=== PATIENT | male | born 1930 | race Caucasian/White ===

== ENCOUNTER 2017-12-06 12:21 | Inpatient (IN) | payer MEDICARE, OTHER ==
[~2017-12-06] VITALS: Ht 177.8 cm; Wt 92.3 kg
[~2017-12-06 12:21] MED LIST: CARDURA 2MG2 MG PO; COZAAR100 MG PO; DEPO-TESTOS200 MG/M1 IM; HCTZ 25MG TAB25 MG PO; MULTIPLE VITAMI1 CAP PO; NEURONTIN300 MG/CAP PO; NORVASC 10MG10 MG PO; PRAVACHOL 40MG40 MG PO; VITAMIN D1000 IU PO
[2018-02-10] VITALS (13 sets, daily range): BP systolic 113–153; BP diastolic 52–86; PULSE 51–109; TEMP 97.2–98.2
[2018-02-11 04:55] VITALS: BP 117/57; PULSE 59; TEMP 97.9
[2018-02-11 06:48] LABS: HEMOGLOBIN 14.1 g/dl (13.5-18.0)
[2018-02-11 07:47] VITALS: BP 133/60; PULSE 54; TEMP 97
[2018-02-11 12:56] VITALS: BP 140/44; PULSE 93; TEMP 97.6
[2018-02-11 16:50] VITALS: BP 136/50; PULSE 90; TEMP 97.4
[2018-02-11 21:41] VITALS: BP 167/58; PULSE 54; TEMP 98.1
[2018-02-12 00:12] VITALS: BP 138/55; PULSE 57; TEMP 98.1
[2018-02-12 04:02] VITALS: BP 140/63; PULSE 55; TEMP 98.2
[2018-02-12] MEDS ORDERED: NORCO 325 MG-7.1 TAB PO (06:34)
[2018-02-12] MEDS ORDERED: ROXICODONE 55 MG/TAB PO (06:35)
[2018-02-12] MEDS ORDERED: ASPI325T6 PO (06:35)
[2018-02-12 08:00] VITALS: BP 144/50; PULSE 56; TEMP 97.6
[2018-02-12 11:34] VITALS: BP 120/61; PULSE 62; TEMP 97.5
== END 2018-02-12 13:45 | disposition home or self-care (01) | DRG 470 ==
LOC: JCC 02-10 08:07
PROVIDERS: Orthopaedic Surgery
PROC: 0SRD0J9 Replacement of Left Knee Joint with Synthetic Substitute, Cemented, Open Approach (ICD-10-PCS; principal; 2018-02-10 14:00)
DX: M17.12 Unilateral primary osteoarthritis, left knee (principal); I10 Essential (primary) hypertension; Z85.46 Personal history of malignant neoplasm of prostate
CPT/HCPCS: A4314; A9284; C1713; C1776; J0690; J2250; J2704; J7120

== ENCOUNTER → 2018-01-30 | Outpatient (CLI) | payer MEDICARE, OTHER ==
[~2018-01-30] MED LIST changes: -DEPO-TESTOS200 MG/M1 IM; +TESTOSTERONE
[2018-01-30 13:05] LABS: HIV 1/2 Antibodies Non-Reactive; HIV-1p24 Antigen Non-Reactive
== END ==
LOC: COL.LAB 11:01
PROVIDERS: Orthopaedic Surgery
DX: Z01.818 Encounter for other preprocedural examination (principal); M17.12 Unilateral primary osteoarthritis, left knee

== ENCOUNTER 2018-02-23 04:33 | Emergency (ER) | payer MEDICARE, OTHER ==
[~2018-02-23] VITALS: Ht 182.9 cm; Wt 95.5 kg
[~2018-02-23 04:33] MED LIST changes: +ASPI325T6 PO; +DEPO-TESTOS200 MG/M1 IM; +NORCO 325 MG-7.1 TAB PO; +ROXICODONE 55 MG/TAB PO; -TESTOSTERONE
[2018-02-23] MEDS ORDERED: TYLENOL 500MG500 MG PO (05:49)
[2018-02-23] MEDS ORDERED: DULCOLAX STOOL100 MG PO (05:50)
[2018-02-23] MEDS ORDERED: GOOD NEIGH1200 MG/15 (05:51)
[2018-02-23] MEDS ORDERED: LYRICA 75MG CAP75 MG PO (05:51)
[2018-02-23 06:02] LABS: BASO # 0.1 (0.0-0.2); BASO % 0.5 % (0.0-2.0); EOS # 0.3 (0.0-0.7); EOS % 2.6 % (0-4.0); GRAN # 7.3 (1.4-6.5); GRAN % 76.9 % (42.2-75.2); HEMOGLOBIN 13.8 g/dl (13.5-18.0); LYMPH # 1.1 (1.2-3.4); LYMPH % 11.3 % (20.0-51.0); MEAN CELL VOLUME 93 fl (80.0-100.0); MEAN CORPUSCULAR HEMOGLOBIN 31 pg (27.0-31.0); MEAN CORPUSCULAR HGB CONC 34 g/dl (33.0-37.0); MEAN PLATELET VOLUME 9.1 fl (7.4-10.4); MONO # 0.8 (0.1-0.6); MONO % 7.9 % (1.7-9.3); PLATELET COUNT 310 K/mm3 (130-400); RED BLOOD COUNT 4.43 M/mm3 (4.20-5.60)
[2018-02-23 06:23] LABS: ALANINE AMINOTRANSFERASE 50 U/L (21-72); ALBUMIN 3.6 gm/dL (3.5-5.0); ALKALINE PHOSPHATASE 71 U/L (50-136); ANION GAP 11 mmol/L (7-16); AST,SGOT 38 U/L (15-37); BLOOD UREA NITROGEN 28 mg/dL (9-20); CALCIUM 7.9 mg/dL (8.4-10.2); CARBON DIOXIDE 27 mmol/L (22-30); CHLORIDE 91 mmol/L (98-107); CREATININE, serum 1.37 mg/dL (0.66-1.25); GLUCOSE 119 mg/dL (74-106); POTASSIUM 3.6 mmol/L (3.4-5.0); SODIUM 129 mmol/L (137-145); TOTAL PROTEIN 6.7 gm/dL (6.4-8.2)
[2018-02-23] MEDS ORDERED: ZOFRAN 4MG T4 MG/TAB PO (06:41)
[2018-02-23] MEDS ORDERED: ANTIVERT 25MG25 MG PO (06:41)
[2018-02-23 06:53] LABS: TROPONIN-I < 0.012 ng/mL (0.000-0.034)
[2018-02-23 07:03] VITALS: BP 145/65; PULSE 65; TEMP 97.5
== END 2018-02-23 07:06 | disposition home or self-care (01) ==
LOC: COL.ER 04:33
PROVIDERS: Emergency Medicine
DX: R42 Dizziness and giddiness (principal); I10 Essential (primary) hypertension; E78.5 Hyperlipidemia, unspecified; Z79.82 Long term (current) use of aspirin; Z79.899 Other long term (current) drug therapy; Z98.890 Other specified postprocedural states; Z96.652 Presence of left artificial knee joint

== ENCOUNTER 2018-09-06 18:02 | Inpatient (IN) | payer MEDICARE, OTHER ==
[~2018-09-06] VITALS: Ht 177.8 cm; Wt 82.9 kg
--- NOTE | 2018-09-06 | NUR ---
PATIENT ON UNIT. ASSESSMENT COMPLETED AT THIS TIME. VITAL SIGNS AND PAIN RECORDED WELL. MEDICATIONS STARTED, ORDERS VARIFIED, PERIPHERAL IV INTITIATED, AND RANDOLPH PLACED. WILL CONTINUE TO MONITOR PATIENT.
[~2018-09-06 18:02] MED LIST changes: +ANTIVERT 25MG25 MG PO; +DULCOLAX STOOL100 MG PO; +GOOD NEIGH1200 MG/15; +LYRICA 75MG CAP75 MG PO; +TYLENOL 500MG500 MG PO; +ZOFRAN 4MG T4 MG/TAB PO
[2018-09-06 19:06] LABS: MEAN CELL VOLUME 92 fl (80.0-100.0); MEAN CORPUSCULAR HGB CONC 34 g/dl (33.0-37.0); MEAN PLATELET VOLUME 9.9 fl (7.4-10.4); PLATELET COUNT 90 K/mm3 (130-400); RED BLOOD COUNT 2.57 M/mm3 (4.20-5.60); REDCELL DISTRIBUTION WIDTH-CV 12.6 % (11.5-14.5)
[2018-09-06 19:19] LABS: ALANINE AMINOTRANSFERASE 61 U/L (21-72); ALBUMIN 2.9 gm/dL (3.5-5.0); ALKALINE PHOSPHATASE 178 U/L (50-136); ANION GAP 9 mmol/L (7-16); AST,SGOT 32 U/L (15-37); BLOOD UREA NITROGEN 50 mg/dL (9-20); C-REACTIVE PROTEIN 4.1 mg/dL (0.0-0.9); CALCIUM 7.4 mg/dL (8.4-10.2); CARBON DIOXIDE 26 mmol/L (22-30); CHLORIDE 90 mmol/L (98-107); CREATININE, serum 1.48 (0.66-1.25); GLUCOSE 161 mg/dL (74-106); HEMATOCRIT 23.7 % (42.0-52.0); HEMOGLOBIN 8.1 g/dl (13.5-18.0); MEAN CORPUSCULAR HEMOGLOBIN 32 pg (27.0-31.0); POTASSIUM 3.8 mmol/L (3.4-5.0); SODIUM 125 mmol/L (137-145); TOTAL PROTEIN 5.5 gm/dL (6.4-8.2)
[2018-09-06 19:24] LABS: LIPASE < 10 U/L (23-300)
[2018-09-06 19:28] LABS: TROPONIN-I < 0.012 ng/mL (0.000-0.035)
[2018-09-06 19:34] LABS: BAND 7 % (0-10); LYMPHOCYTE 12 % (20.0-51.0); NEUTROPHILS 81 % (42.0-75.2)
[2018-09-06 19:35] LABS: PLATELET ESTIMATE DECREASED (NORMAL)
[2018-09-06 19:38] LABS: ANISOCYTOSIS 1+
[2018-09-06] MEDS ORDERED: COLACE LIQUI10 MG/ML PEG (20:54)
[2018-09-06] MEDS ORDERED: HYDRODIURIL50 MG PO (20:58)
[2018-09-06] MEDS ORDERED: LIDODERM 5% PATC1 EA TP (20:59)
[2018-09-06] MEDS ORDERED: REGLAN 5MG T5 MG/TAB PO (21:00)
[2018-09-06] MEDS ORDERED: OPTIVE 0.5%-0.915 ML OU (21:00)
[2018-09-06] MEDS ORDERED: PROTONIX 40MG T40 MG PO (21:01)
[2018-09-06 21:02] LABS: COLLECTION METHOD CLEAN CATCH
[2018-09-06] MEDS ORDERED: PERICOLACE PO (21:04)
[2018-09-06] MEDS ORDERED: FLOMAX 0.40.4 MG/CAP PO (21:05)
[2018-09-06] MEDS ORDERED: ULTRAM 50MG TAB50 MG PO (21:05)
[2018-09-06] MEDS ORDERED: VITAMIN D 1001000 IU PO (21:06)
[2018-09-06 21:08] LABS: PH 5 (5-8); SQUAMOUS EPITHELIAL 0-2 /hpf; URINE APPEARANCE Clear; URINE BACTERIA None Seen /hpf; URINE BILIRUBIN Negative (NEGATIVE); URINE BLOOD Negative (NEGATIVE); URINE COLOR Yellow; URINE GLUCOSE Negative (NEGATIVE); URINE KETONE Negative (NEGATIVE); URINE LEUKOCYTE ESTERASE Negative (NEGATIVE); URINE NITRATE Negative (NEGATIVE); URINE PROTEIN(semi-quant) Negative (NEGATIVE); URINE RBC None Seen /hpf; URINE UROBILINOGEN Negative (NEGATIVE)
[2018-09-06] MEDS ORDERED: PANCREAZE 437501 ECC PEG (21:08)
--- NOTE | 2018-09-06 23:30 | NUR ---
RECEIVED REPORT FROM LEONARDA ALVARADO.
[2018-09-07] VITALS (1009 sets, daily range): BP systolic 102–144; BP diastolic 46–78; PULSE 63–83; TEMP 97.7–98.9; O2SAT 77–100
[2018-09-07 01:16] LABS: INR 1.3 (0.8-3.0); PROTHROMBIN TIME 14.7 SECONDS (9.7-12.8)
[2018-09-07 02:05] LABS: ARTERIAL BLD GAS O2 SATURATION 93.7 % (92-100); ARTERIAL BLD GAS TCO2 CT 23.7; ARTERIAL BLOOD GAS BASE EXCESS -1.1 (-2-2); ARTERIAL BLOOD GAS HCO3 22.6 meq/L (22-26); ARTERIAL BLOOD GAS PCO2 33.4 mmHg (35-45); ARTERIAL BLOOD GAS PO2 80.4 mmHg (80-100); ARTERIAL BLOOD GAS pH 7.45 (7.35-7.45)
[2018-09-07] MEDS ORDERED: ZOFRAN8 MG PO (03:06)
[2018-09-07] MEDS ORDERED: COLACE 100100 MG/CAP PO (03:12)
[2018-09-07 05:23] LABS: MEAN CELL VOLUME 93 fl (80.0-100.0); MEAN CORPUSCULAR HGB CONC 33 g/dl (33.0-37.0); MEAN PLATELET VOLUME 9.7 fl (7.4-10.4); PLATELET COUNT 80 K/mm3 (130-400); RED BLOOD COUNT 2.24 M/mm3 (4.20-5.60); REDCELL DISTRIBUTION WIDTH-CV 12.4 % (11.5-14.5)
--- NOTE | 2018-09-07 05:23 | NUR ---
PATIENT IS RESTING IN BED AT THIS TIME. DOES NOT COMPLAIN OF PAIN AT THIS TIME. WILL CONTINUE TO MONITOR PATIENT.
[2018-09-07 05:28] LABS: HEMATOCRIT 20.9 % (42.0-52.0); HEMOGLOBIN 6.9 g/dl (13.5-18.0); MEAN CORPUSCULAR HEMOGLOBIN 31 pg (27.0-31.0)
--- NOTE | 2018-09-07 05:29 | NUR ---
RECEIVED A CRITICAL LAB VALUE ON PATIENT. NOTIFIED AMARA PERALTA REGARDING CRITICAL VALUE.
[2018-09-07 05:44] LABS: ALBUMIN 2.4 gm/dL (3.5-5.0); CALCIUM 6.9 mg/dL (8.4-10.2); CREATININE, serum 1.4 (0.66-1.25); MAGNESIUM 1.8 mg/dL (1.6-2.3); POTASSIUM 3.6 mmol/L (3.4-5.0); TOTAL PROTEIN 4.7 gm/dL (6.4-8.2)
[2018-09-07 05:55] LABS: INR 1.4 (0.8-3.0); PROTHROMBIN TIME 15.5 SECONDS (9.7-12.8)
[2018-09-07 06:00] LABS: ARTERIAL BLD GAS O2 SATURATION 94.3 % (92-100); ARTERIAL BLD GAS TCO2 CT 23.1; ARTERIAL BLOOD GAS BASE EXCESS -1.4 (-2-2); ARTERIAL BLOOD GAS HCO3 22.1 meq/L (22-26); ARTERIAL BLOOD GAS PCO2 31.9 mmHg (35-45); ARTERIAL BLOOD GAS PO2 81.3 mmHg (80-100); ARTERIAL BLOOD GAS pH 7.46 (7.35-7.45)
--- NOTE | 2018-09-07 06:25 | NUR ---
PT EKG STATED CRITICAL RESULT. PRINT OUT GIVEN TO NURSE TO BE NOTIFIED.
--- NOTE | 2018-09-07 06:45 | NUR ---
patient is currently receiving 1 unit of packed red blood cells.
--- NOTE | 2018-09-07 07:05 | NUR ---
Bedside report recieved from LEONARDA Gerber.
--- NOTE | 2018-09-07 07:28 | NUR ---
GAVE REPORT TO LEONARDA TREADWELL.
--- NOTE | 2018-09-07 07:45 | NUR ---
Assessment complete, patient resting in bed, reports just being "uncomfortable." PRBC's infusing. Call light within reach.
--- NOTE | 2018-09-07 08:11 | NUR ---
VBG NOT DONE AT THIS TIME DUE TO PATIENT RECEIVEING BLOOD AT THIS TIME.
--- NOTE | 2018-09-07 08:12 | NUR ---
Patient placed on bedpan.
[2018-09-07 11:17] LABS: HYPOCHROMIA 1+; LYMPHOCYTE 22 % (20.0-51.0); NEUTROPHILS 78 % (42.0-75.2); PLATELET ESTIMATE DECREASED (NORMAL)
[2018-09-07 12:13] LABS: HEMOGLOBIN 8.7 g/dl (13.5-18.0)
--- NOTE | 2018-09-07 14:00 | NUR ---
Patient reports pain to mid lower back, states there "feels like something bunched up. Patient repositioned for comfort.
--- NOTE | 2018-09-07 14:28 | NUR ---
25 mcg IV Fentanyl given as ordered for pain 12/10.
--- NOTE | 2018-09-07 15:00 | NUR ---
Patient reports pain still 6/10.
--- NOTE | 2018-09-07 15:30 | NUR ---
No urine noted in catheter tubing/bag, bladder scan patient, > 740ml noted in bladder.
--- NOTE | 2018-09-07 17:00 | NUR ---
Patient cleaned and repositioned, denies pain at this time.
--- NOTE | 2018-09-07 19:28 | NUR ---
Bedside report given to LEONARDA Ellis. Bed bath and linens changed at this time.
--- NOTE | 2018-09-07 19:28 | NUR ---
Bedside report received from LEONARDA Mcgraw. All lines and medications reviewed. Drain site assessed. Transfer of care at this time.
--- NOTE | 2018-09-07 20:00 | NUR ---
Assessment complete. Patient is resting in bed talking with family at the bedside. Patient's bowel sounds are more active than previous shift and audible all over. Patient continues to have good urine output with the color in the tubing no longer being dark red. Patient has no complaints of pain or discomfort. Patient has no further needs at this time. Will continue to monitor. Call light within reach.
--- NOTE | 2018-09-07 20:42 | NUR ---
[facility] fire department calls report at this time. Patient remains stable. Will arrive in 5-10mins
--- NOTE | 2018-09-07 20:58 | NUR ---
Patient arrives at this time via EMS stretcher. Belongings at bedside. Patient slides self to unit bed. Attached to monitoring equipment. Assessment complete. Patient is tachycardic from moving to unit bed in the 110's. Heart rate is regular and normal sounds heard. Patient's abdomen is distended from ascites. Patient's skin is jaundice and he has generalized bruising. There is an abrasion on his left elbow from where he fell at home. On his right posterior bicep there are several linear bruises/scratches. Patient has +1 edema in his legs. Patient has no complaint of pain and only SOB with exertion. Oriented to patient and room, educated second helper light and plan of care. patient has no questions at this time. Patient has no further needs. Will continue to monitor. Call light within reach.
--- NOTE | 2018-09-07 21:59 | NUR ---
LEONARDA Khanna from [facility] calls at this time to give report. Report received. Provided post-transfusion vitals.
[2018-09-08] VITALS (538 sets, daily range): BP systolic 111–141; BP diastolic 37–84; PULSE 49–94; TEMP 97.6–98.8; O2SAT 80–100
--- NOTE | 2018-09-08 | NUR ---
Assessment complete. Patient has no complaints of pain or discomfort. O2 placed on patient 3L OM due to decreased O2 sats while sleeping. Dropped to 86%. Patient now at 100%. Assessment reveals no changes from previous. Patient is resting comfortably. No current needs at this time. Will continue to monitor. Call light within reach.
--- NOTE | 2018-09-08 | NUR ---
Assessment complete. Patient resting in bed at this time. No changes from previous assessment. Still no complaints of pain and only SOB with exertion. Patient is being transfused with no evidence of reaction. Will continue to monitor. Call light within reach.
--- NOTE | 2018-09-08 04:00 | NUR ---
Assessment complete. Patient asleep at this time but awakens easily. patient's bowel sounds are active with some hypoactivity on the left side. All other assessment findings remain the same. Patient is resting comfortably with no pain or discomfort. No needs at this time. Will continue to monitor. Call light within reach
[2018-09-08 05:19] LABS: MEAN CELL VOLUME 92 fl (80.0-100.0); MEAN CORPUSCULAR HGB CONC 34 g/dl (33.0-37.0); MEAN PLATELET VOLUME 9.5 fl (7.4-10.4); PLATELET COUNT 88 K/mm3 (130-400); REDCELL DISTRIBUTION WIDTH-CV 12.6 % (11.5-14.5)
[2018-09-08 05:20] LABS: HEMOGLOBIN 8.2 g/dl (13.5-18.0); MEAN CORPUSCULAR HEMOGLOBIN 32 pg (27.0-31.0)
[2018-09-08 05:27] LABS: ARTERIAL BLD GAS O2 SATURATION 93.5 % (92-100); ARTERIAL BLD GAS TCO2 CT 20.9; ARTERIAL BLOOD GAS BASE EXCESS -3.9 (-2-2); ARTERIAL BLOOD GAS PCO2 31.4 mmHg (35-45); ARTERIAL BLOOD GAS PO2 73.2 mmHg (80-100); ARTERIAL BLOOD GAS pH 7.42 (7.35-7.45)
[2018-09-08 05:31] LABS: INR 1.3 (0.8-3.0); PROTHROMBIN TIME 14.7 SECONDS (9.7-12.8)
[2018-09-08 05:48] LABS: ALBUMIN 2.2 gm/dL (3.5-5.0); CALCIUM 7.3 mg/dL (8.4-10.2); CREATININE, serum 1.61 (0.66-1.25); POTASSIUM 3.6 mmol/L (3.4-5.0); TOTAL PROTEIN 4.8 gm/dL (6.4-8.2)
[2018-09-08 06:16] LABS: PLATELET ESTIMATE DECREASED (NORMAL)
[2018-09-08 06:25] LABS: EOSINOPHIL 2 % (0-4); LYMPHOCYTE 36 % (20.0-51.0); NEUTROPHILS 62 % (42.0-75.2)
--- NOTE | 2018-09-08 07:24 | NUR ---
Bedside report given to LEONARDA Viramontes. All lines and medications reviewed. Transfer of care at this time.
--- NOTE | 2018-09-08 07:25 | NUR ---
Report received from Rhonda BROWER and care resumed.
--- NOTE | 2018-09-08 08:10 | NUR ---
Dr Altamirano in to see pt at this time.
--- NOTE | 2018-09-08 09:24 | NUR ---
Pt resting upon assessment. Denies any pain or concerns. VSS. IV fluids and antibiotics infusing. Waiting for all doctors to round for updated plan of care. Will continue to follow.
--- NOTE | 2018-09-08 10:08 | NUR ---
Dr Gonzalez in to see pt at this time.
--- NOTE | 2018-09-08 12:08 | NUR ---
First visit from the paper plate machine tender. No needs right now.
--- NOTE | 2018-09-08 14:59 | NUR ---
ZACHARY and ZACHRAY student met with the patient and patient's , Abbie, to discuss discharge plan. The patient lives in [place] with his . He reports independence with ADLs and has a walker. He states that he does have home health services through [facility] and that they help with dressing changes for his feeding tube and that they also take his blood pressure and temp. ZACHARY attempted to contact Sofia at [facility] to confirm services. ZACHARY left a voicemail. The patient reports that he wants to resume home health upon discharge. ZACHARY provided the patient with Medicare.[employer] list of home health agencies that serve [place]. The patient and patient's chose to resume with [facility]. The patient's PCP is Dr. Alexx Ewing and he receives his medications at [facility]. He reports no difficulties obtaining his meds. The patient's DPOA-HC is in EMR. The patient plans to return home with his and home health through [facility] upon discharge. ZACHARY did request for the patient's PA, Trang, to order PT/OT. ZACHARY to continue to follow.
[2018-09-08 16:58] LABS: MAGNESIUM 1.8 mg/dL (1.6-2.3); PHOSPHOROUS 2.6 mg/dL (2.5-4.5)
--- NOTE | 2018-09-08 17:53 | NUR ---
Report called to Sherice BROWER on medical floor. Pt to transfer to room 311.
--- NOTE | 2018-09-08 18:26 | NUR ---
Pt taken up by wheelchair to room 311 with chart and belongings. Family present. Bedside update given to Sherice BROWER.
--- NOTE | 2018-09-08 20:50 | NUR ---
Assessment complete. Pt is AXO X3, denies having any pain at this time. Breathing is even and unlabored on room air. Tele on. R chest portacath has good blood return, flushes easily, remains free of complications, and is CDI. Will start J tube feedings when tubing is available. Martines is draining clear, yellow urine, but the is blood noted to be around the head of the penis so pericare was provided. Pt's daughter is at the bedside; all questions answered. Pt is sitting up in the chair watching TV at this time and he denies further needs. Call light within reach, will continue to monitor.
--- NOTE | 2018-09-09 | NUR ---
Tube feedings started late due to multiple malfunctioning pumps.
[2018-09-09 04:04] VITALS: BP 100/50; PULSE 94; TEMP 98.1
[2018-09-09 05:54] LABS: MEAN CELL VOLUME 93 fl (80.0-100.0); MEAN CORPUSCULAR HGB CONC 34 g/dl (33.0-37.0); MEAN PLATELET VOLUME 9.1 fl (7.4-10.4); PLATELET COUNT 111 K/mm3 (130-400); REDCELL DISTRIBUTION WIDTH-CV 12.8 % (11.5-14.5)
[2018-09-09 05:56] LABS: HEMATOCRIT 22.4 % (42.0-52.0); HEMOGLOBIN 7.6 g/dl (13.5-18.0); MEAN CORPUSCULAR HEMOGLOBIN 32 pg (27.0-31.0)
[2018-09-09 06:04] LABS: INR 1.2 (0.8-3.0); PROTHROMBIN TIME 13.7 SECONDS (9.7-12.8)
[2018-09-09 06:11] LABS: BILIRUBIN,TOTAL 0.4 mg/dL (0.0-1.0); CALCIUM 7.1 mg/dL (8.4-10.2); CREATININE, serum 1.36 (0.66-1.25); POTASSIUM 3.5 mmol/L (3.4-5.0); TOTAL PROTEIN 4.3 gm/dL (6.4-8.2)
--- NOTE | 2018-09-09 06:12 | NUR ---
Pt has been resting on and off throughout the night. He has remained free of pain. Tube feedings initiated around 0000. Family members at the bedside; all questions answered. Pt is resting quielty in the bed at this time and he denies further needs. Call light within reach.
[2018-09-09 07:41] VITALS: BP 120/59; PULSE 91; TEMP 97.9
[2018-09-09 08:00] LABS: BAND 2 % (0-10); EOSINOPHIL 4 % (0-4); LYMPHOCYTE 44 % (20.0-51.0); NEUTROPHILS 50 % (42.0-75.2)
[2018-09-09 08:02] LABS: PLATELET ESTIMATE DECREASED (NORMAL)
--- NOTE | 2018-09-09 08:04 | NUR ---
Pt assessment complete. Pt is laying in bed upon entry, he is A/O x3. His breathing is even and unlabored on RA. Pt denies pain. No N/V, tube feeding in process. Rate increased to 80mls/hr per protocol. Dressing to J tube, CDI. Bobbi QURESHI. Pt denies needs at this time. Call light within reach.
[2018-09-09 08:08] LABS: SCHISTOCYTES 1+
[2018-09-09 11:12] VITALS: BP 120/50; PULSE 60; TEMP 97.3
--- NOTE | 2018-09-09 14:22 | NUR ---
Tube feedings stopped at this time, per order set. Pt denies any needs. POC discussed with patient who verbalizes understanding.
--- NOTE | 2018-09-09 15:30 | NUR ---
Martines dc'd per order at this time. Small amount of bleeding present.
[2018-09-09 15:54] VITALS: BP 124/48; PULSE 52; TEMP 97.5
--- NOTE | 2018-09-09 16:56 | NUR ---
Dressing to J tube changed, green/yellow drainage present. POC discussed with patient, who verbalizes understanding. No needs at this time.
--- NOTE | 2018-09-09 19:18 | NUR ---
Report given to LEONARDA Allen. Pt resting in bed, has urinated since mosqueda removal. He denies any needs at this time. Call light within reach.
[2018-09-09 19:57] VITALS: BP 122/68; PULSE 51; TEMP 98.3
[2018-09-09 23:26] VITALS: BP 131/48; PULSE 57; TEMP 97.3
[2018-09-10] VITALS (7 sets, daily range): BP systolic 106–152; BP diastolic 37–63; PULSE 38–78; TEMP 97.4–98.5
--- NOTE | 2018-09-10 03:40 | NUR ---
Completed medication administration and assessment; PT tolerated all cares well. Jevity initiated at 50ml/hr to J-tube for 8hr with q4hr 30ml flushing; PT A&Ox4, BS active x4, IHRR, J-Tube to RLQ with green drainage, IV to RFA, RT subClav central line, LCTA with bilateral diminished bases; PT denies pain at time of assessment; PT AMB to restroom well and voiding without pain or discomfort post mosqueda removal; No further assessed needs or concerns at time of exit; PT able to return to a comfortable position in bed with call light within reach; Will continue to monitor. CDA
--- NOTE | 2018-09-10 04:39 | NUR ---
PT resting well in bed with Jevity running at 50ml/hr with 30ml flush q4h. PT tolerating all care and rest well; AMB and voiding well throughout night post mosqueda removal. CDA
[2018-09-10 05:53] LABS: MEAN CELL VOLUME 94 fl (80.0-100.0); MEAN CORPUSCULAR HGB CONC 34 g/dl (33.0-37.0); MEAN PLATELET VOLUME 9.3 fl (7.4-10.4); PLATELET COUNT 102 K/mm3 (130-400); RED BLOOD COUNT 2.35 M/mm3 (4.20-5.60); REDCELL DISTRIBUTION WIDTH-CV 13.2 % (11.5-14.5)
[2018-09-10 05:58] LABS: HEMOGLOBIN 7.4 g/dl (13.5-18.0); MEAN CORPUSCULAR HEMOGLOBIN 31 pg (27.0-31.0)
[2018-09-10 06:07] LABS: CALCIUM 7.3 mg/dL (8.4-10.2); CREATININE, serum 1.34 (0.66-1.25); POTASSIUM 3.7 mmol/L (3.4-5.0)
[2018-09-10 06:26] LABS: LYMPHOCYTE 26 % (20.0-51.0); NEUTROPHILS 72 % (42.0-75.2); PLATELET ESTIMATE DECREASED (NORMAL)
--- NOTE | 2018-09-10 07:15 | NUR ---
Report given to LEONARDA Flores; No significant change or concerns at shift change. CDA
--- NOTE | 2018-09-10 07:58 | NUR ---
Pt assessment complete. Pt is sitting up in bed upon entry, he is A/O x3. His breathing is even and unlabored on RA. Pt denies SOB. No pain this AM. Pt denies any N/V. Tube feeding disconnected per protocol. Pt tolerated well. No needs at this time. Call light within reach. Will continue to monitor.
--- NOTE | 2018-09-10 11:03 | NUR ---
SW attended clinical rounding. Patient to ct tomorrow home with [facility].
--- NOTE | 2018-09-10 20:00 | NUR ---
Completed assessment and medication administration; PT tolerated all cares well; Initiated tube feeding at 100ml/hr per new orders with 30ml flush q4h; PT tolerating feeing well at this time; PT A&Ox4, BS active x4, LCTA with bilateral diminished bases, advanced to GEN diet and tolerating well, AMB IND in room, continues to void without complaints; No further assessed or verbalized concerns or pain at time of exit; PT able to return to comfortable position in recliner with call light and personal items within reach; Will continue to monitor. CDA
--- NOTE | 2018-09-11 03:50 | NUR ---
PT resting well in bed with Jevity 1.5 at rate of 100ml/hr; PT tolerating tube feeding well; No acute concerns found at time of rounds; Will continue to monitor. CDA
[2018-09-11 04:10] VITALS: BP 126/47; PULSE 62; TEMP 97.6
[2018-09-11 06:20] LABS: MEAN CELL VOLUME 95 fl (80.0-100.0); MEAN CORPUSCULAR HGB CONC 34 g/dl (33.0-37.0); MEAN PLATELET VOLUME 9.4 fl (7.4-10.4); PLATELET COUNT 103 K/mm3 (130-400); RED BLOOD COUNT 2.32 M/mm3 (4.20-5.60); REDCELL DISTRIBUTION WIDTH-CV 13.5 % (11.5-14.5)
[2018-09-11 06:23] LABS: HEMOGLOBIN 7.4 g/dl (13.5-18.0); MEAN CORPUSCULAR HEMOGLOBIN 32 pg (27.0-31.0)
[2018-09-11 06:39] LABS: CALCIUM 7.6 mg/dL (8.4-10.2); CREATININE, serum 1.39 (0.66-1.25)
[2018-09-11 06:55] LABS: BAND 13 % (0-10); EOSINOPHIL 1 % (0-4); LYMPHOCYTE 24 % (20.0-51.0); METAMYELOCYTE 1 % (0-0); NEUTROPHILS 56 % (42.0-75.2); PLATELET ESTIMATE DECREASED (NORMAL)
--- NOTE | 2018-09-11 07:11 | NUR ---
Report given to LEONARDA Schmitt; No significant changes or concern at time of report. CDA
--- NOTE | 2018-09-11 08:00 | NUR ---
see assessment. patient up in chair with breakfast tray. tube feed in progress. patient a&ox4. call light within reach. patient denies any needs at this time.
[2018-09-11 08:36] VITALS: BP 127/46; PULSE 36; PULSE 47; TEMP 98
--- NOTE | 2018-09-11 09:43 | NUR ---
SW attended clinical rouding and met with patient to discuss discharge. Patient is DC today home with spouse and [facility]. SW presented IM and verbally discussed the contents. Patient was agreeable and signed the form. Patient presented with copy and original placed on chart.
[2018-09-11] MEDS ORDERED: CEFTIN500 MG PO (11:33)
[2018-09-11] MEDS ORDERED: DIFLUCAN150 MG PO (11:33)
--- NOTE | 2018-09-11 13:09 | NUR ---
ZACHARY faxed discharge orders to [facility]. [facility] today with [facility] PT/OT/SN.
--- NOTE | 2018-09-11 15:59 | NUR ---
patient's left forearm int dc'd per pending discharge. discharge instructions reviewed with patient and family. all questions answered. patient taken to personal vhicle via wheelchair by medical staff. patient discharged.
== END 2018-09-11 16:00 | disposition home health service (06) | DRG 393 ==
LOC: COL.ER 18:02 → MEDICAL 21:58 → ICU 21:58 → MEDICAL 09-08 18:09
PROVIDERS: Emergency Medicine; Internal Medicine; Nurse Practitioner Family; Physician Assistant; Surgery; ADMIT Internal Medicine
DX: K94.12 Enterostomy infection (principal); A41.9 Sepsis, unspecified organism; D61.810 Antineoplastic chemotherapy induced pancytopenia; R65.20 Severe sepsis without septic shock; Z66 Do not resuscitate; E87.1 Hypo-osmolality and hyponatremia; C25.8 Malignant neoplasm of overlapping sites of pancreas; C77.2 Secondary and unspecified malignant neoplasm of intra-abdominal lymph nodes; C78.7 Secondary malignant neoplasm of liver and intrahepatic bile duct; K56.7 Ileus, unspecified; N17.9 Acute kidney failure, unspecified; I12.9 Hypertensive chronic kidney disease with stage 1 through stage 4 chronic kidney disease, or unspecified chronic kidney disease; N18.3 Chronic kidney disease, stage 3 (moderate); Z85.46 Personal history of malignant neoplasm of prostate; G62.0 Drug-induced polyneuropathy; T45.1X5S Adverse effect of antineoplastic and immunosuppressive drugs, sequela; D64.9 Anemia, unspecified; B96.20 Unspecified Escherichia coli [E. coli] as the cause of diseases classified elsewhere; B95.2 Enterococcus as the cause of diseases classified elsewhere; B96.1 Klebsiella pneumoniae [K. pneumoniae] as the cause of diseases classified elsewhere; E78.2 Mixed hyperlipidemia
CPT/HCPCS: 99223-AI; 99232-AI; 99233-AI; 99239; J1447; J1450; J1644; J1956; J2543; J3010; J3370; J7030; J7050; P9016

== ENCOUNTER 2018-09-21 09:28 | Observation (INO) | payer MEDICARE, OTHER ==
[~2018-09-21] VITALS: Ht 182.9 cm; Wt 87.0 kg
[~2018-09-21 09:28] MED LIST changes: +CEFTIN500 MG PO; +COLACE 100100 MG/CAP PO; +COLACE LIQUI10 MG/ML PEG; +DIFLUCAN150 MG PO; +FLOMAX 0.40.4 MG/CAP PO; +HYDRODIURIL50 MG PO; +LIDODERM 5% PATC1 EA TP; +OPTIVE 0.5%-0.915 ML OU; +PANCREAZE 437501 ECC PEG; +PERICOLACE PO; +PROTONIX 40MG T40 MG PO; +REGLAN 5MG T5 MG/TAB PO; +ULTRAM 50MG TAB50 MG PO; +VITAMIN D 1001000 IU PO; +ZOFRAN8 MG PO
[2018-09-21 10:17] LABS: MEAN CELL VOLUME 100 fl (80.0-100.0); MEAN CORPUSCULAR HGB CONC 32 g/dl (33.0-37.0); MEAN PLATELET VOLUME 10.4 fl (7.4-10.4); PLATELET COUNT 276 K/mm3 (130-400); RED BLOOD COUNT 2.43 M/mm3 (4.20-5.60); REDCELL DISTRIBUTION WIDTH-CV 16.6 % (11.5-14.5)
[2018-09-21 10:23] LABS: HEMATOCRIT 24.4 % (42.0-52.0); HEMOGLOBIN 7.9 g/dl (13.5-18.0); MEAN CORPUSCULAR HEMOGLOBIN 33 pg (27.0-31.0)
[2018-09-21 10:30] LABS: ALBUMIN 2.7 gm/dL (3.5-5.0); BILIRUBIN,TOTAL 0.5 mg/dL (0.0-1.0); CALCIUM 7.5 mg/dL (8.4-10.2); CREATININE, serum 1.37 (0.66-1.25); POTASSIUM 4.4 mmol/L (3.4-5.0); TOTAL PROTEIN 5.3 gm/dL (6.4-8.2)
[2018-09-21 10:46] LABS: ARTERIAL BLD GAS O2 SATURATION 94.8 % (92-100); ARTERIAL BLD GAS TCO2 CT 27.1; ARTERIAL BLOOD GAS BASE EXCESS 2.4 (-2-2); ARTERIAL BLOOD GAS PCO2 35.9 mmHg (35-45); ARTERIAL BLOOD GAS PO2 79.1 mmHg (80-100); ARTERIAL BLOOD GAS pH 7.48 (7.35-7.45)
[2018-09-21 10:56] LABS: BAND 1 % (0-10); HYPOCHROMIA 1+; LYMPHOCYTE 3 % (20.0-51.0); NEUTROPHILS 96 % (42.0-75.2); PLATELET ESTIMATE NORMAL (NORMAL)
[2018-09-21 10:56] LABS: COLLECTION METHOD CLEAN CATCH
[2018-09-21 11:02] LABS: PH 6 (5-8); SQUAMOUS EPITHELIAL None Seen /hpf; URINE APPEARANCE Clear; URINE BACTERIA None Seen /hpf; URINE BILIRUBIN Negative (NEGATIVE); URINE BLOOD Negative (NEGATIVE); URINE COLOR Yellow; URINE GLUCOSE Negative (NEGATIVE); URINE KETONE Negative (NEGATIVE); URINE LEUKOCYTE ESTERASE Negative (NEGATIVE); URINE NITRATE Negative (NEGATIVE); URINE PROTEIN(semi-quant) 1+ (NEGATIVE); URINE RBC 0-2 /hpf; URINE UROBILINOGEN Negative (NEGATIVE)
--- NOTE | 2018-09-21 13:33 | NUR ---
Pt arrived to room 317 via stretcher with ED staff. Pt able to transfer from the stretcher to the floor bed with standby assist. Pt oriented to room and call light system. Will complete assessment. Pt is resting quietly in the bed at this time and he denies further needs. Call light within reach, will continue to monitor.
[2018-09-21 14:13] VITALS: BP 116/40; PULSE 68; TEMP 98.2
[2018-09-21 16:21] VITALS: BP 124/44; PULSE 64; TEMP 98.5
--- NOTE | 2018-09-21 18:25 | NUR ---
Since arriving to the floor the pt has been resting quietly. Family members are at the bedside; all questions answered. Pt is resting quilety in the bed at this time and he denies further needs. Call light within reach.
--- NOTE | 2018-09-21 19:03 | NUR ---
Report given to LEONARDA Pelletier.
--- NOTE | 2018-09-21 19:45 | NUR ---
Shift assessment complete. Pt resting in bed, awake, a&o, cooperative c cares. Pt denies pain or other c/o at this time. Portacath accessed to R chest, patent c good blood return. Pt denies needs at this time. Call light in reach, will monitor.
[2018-09-21 20:24] VITALS: BP 120/42; PULSE 80; TEMP 97.6
[2018-09-22 00:34] VITALS: BP 130/53; PULSE 86; TEMP 98.4
--- NOTE | 2018-09-22 05:55 | NUR ---
Pt resting in bed, condition unchanged. Pt has rested well this shift c few needs. SB assist to BR at this time. Denies further needs. Call light in reach.
[2018-09-22 06:18] LABS: BASO % 0.2 % (0.0-2.0); EOS % 0.2 % (0-4.0); GRAN # 8.8 (1.4-6.5); GRAN % 86.6 % (42.2-75.2); LYMPH # 1.1 (1.2-3.4); LYMPH % 10.4 % (20.0-51.0); MEAN CELL VOLUME 102 fl (80.0-100.0); MEAN CORPUSCULAR HGB CONC 32 g/dl (33.0-37.0); MEAN PLATELET VOLUME 10.7 fl (7.4-10.4); MONO # 0.2 (0.1-0.6); MONO % 1.7 % (1.7-9.3); PLATELET COUNT 236 K/mm3 (130-400); RED BLOOD COUNT 2.18 M/mm3 (4.20-5.60); REDCELL DISTRIBUTION WIDTH-CV 16.5 % (11.5-14.5)
[2018-09-22 06:31] LABS: HEMATOCRIT 22.2 % (42.0-52.0); HEMOGLOBIN 7.2 g/dl (13.5-18.0); MEAN CORPUSCULAR HEMOGLOBIN 33 pg (27.0-31.0)
[2018-09-22 06:41] LABS: ALBUMIN 2.4 gm/dL (3.5-5.0); BILIRUBIN,TOTAL 0.6 mg/dL (0.0-1.0); CALCIUM 7.3 mg/dL (8.4-10.2); CREATININE, serum 1.3 (0.66-1.25); POTASSIUM 4.1 mmol/L (3.4-5.0); TOTAL PROTEIN 4.9 gm/dL (6.4-8.2)
--- NOTE | 2018-09-22 06:50 | NUR ---
Received report from desi Pelletier RN. Pt lying in bed and comfortable with no needs at this time. Will continue to monitor.
[2018-09-22 07:28] VITALS: BP 150/58; PULSE 54; TEMP 97.8
[2018-09-22 07:33] VITALS: BP 145/70; TEMP 98.2
--- NOTE | 2018-09-22 08:13 | NUR ---
Assessment charted with an irregular pulse and possible cellulits in the lower legs noted. Bilateral lower legs are red and warm, with 2+ pitting edema. Pt has no pain and gets up to the bathroom well with standby assist. Son was in the room. Pt did well taking oral morning meds. We addressed his tube feeding schedule at home and will pass on that he receives his tube feedings at night with a pump. Ordered his breakfast and will continue to [facility].
--- NOTE | 2018-09-22 09:07 | NUR ---
Initial visit; Patient and family thanked Forward Air Controller/Air Officer for looking in on him and keeping him in Forward Air Controller/Air Officer's prayers.
--- NOTE | 2018-09-22 10:36 | NUR ---
ZACHARY met with the patient and patient's daughter, Su, to discuss discharge plan. The patient lives in [place] with his , Abbie. He reports independence with ADLs and has a cane and walker. He states that he also has home health services through [facility] and would like to resume them upon discharge. ZACHARY presented the patient with Medicare.[employer]'s list of home health agencies that serve [place]. The patient chose to resume services through [facility]. ZACHARY contacted Laura at [facility] and confirmed that the patient has halfway/PT/OT through them. The patient's PCP is Dr. Alexx Ewing and he receives his medications through [facility]. He reports no difficulties obtaining his meds. The patient's DPOA-HC is in EMR. The patient plans to return home with his and home health through [facility] upon discharge. SW to continue to follow.
[2018-09-22 11:21] VITALS: BP 150/50; PULSE 76; TEMP 98
--- NOTE | 2018-09-22 13:00 | NUR ---
Flushed patient's J tube with 60 mL sterile saline. Had to use the Kangaroo pump to flush the tube. Stocked the correct syringes in the room for future use. Will continue to monitor.
[2018-09-22 15:20] VITALS: BP 174/59; PULSE 72; TEMP 97.8
--- NOTE | 2018-09-22 18:35 | NUR ---
Pt up in his recliner and has no complaints of pain. His son is in the room and his supper has been ordered. Able to do a complete bed change while he was up but pt refused a bed bath with wipes. Currently has no needs and will continue to monitor until giving bedside report to nightshift nurse.
[2018-09-22 19:35] VITALS: BP 124/55; PULSE 115; TEMP 98.6
--- NOTE | 2018-09-22 20:00 | NUR ---
PT IN BED WITH HOB ELEVATED TO 45 DEGREE ANGLE. PT HAS FAMILY VISITING. PT DENIES PAIN OR DISCOMFORT AT THIS TIME AND NO NEEDS. CALL LIGHT WITHIN REACH.
[2018-09-23 00:13] VITALS: BP 142/53; TEMP 97.7
--- NOTE | 2018-09-23 01:56 | NUR ---
PT RESTING/SLEEPING IN BED WITH FEED PUMP RUNNING AT 80 ML/HR. PT DENIES PAIN OR DISCOMFORT WHEN ASKED AND NO S/S OF PAIN OR DISCOMFORT NOTED. CALL LIGHT WITHIN REACH.
[2018-09-23 03:47] VITALS: BP 163/56; PULSE 56; TEMP 97.7
[2018-09-23 06:19] LABS: BASO % 0.3 % (0.0-2.0); EOS % 0.6 % (0-4.0); GRAN # 5.9 (1.4-6.5); GRAN % 82.7 % (42.2-75.2); LYMPH # 0.9 (1.2-3.4); LYMPH % 12.3 % (20.0-51.0); MEAN CELL VOLUME 101 fl (80.0-100.0); MEAN CORPUSCULAR HGB CONC 33 g/dl (33.0-37.0); MEAN PLATELET VOLUME 10.7 fl (7.4-10.4); MONO # 0.3 (0.1-0.6); MONO % 3.5 % (1.7-9.3); PLATELET COUNT 268 K/mm3 (130-400); RED BLOOD COUNT 2.21 M/mm3 (4.20-5.60); REDCELL DISTRIBUTION WIDTH-CV 16.2 % (11.5-14.5)
[2018-09-23 06:25] LABS: HEMATOCRIT 22.2 % (42.0-52.0); HEMOGLOBIN 7.3 g/dl (13.5-18.0); MEAN CORPUSCULAR HEMOGLOBIN 33 pg (27.0-31.0)
[2018-09-23 06:34] LABS: CALCIUM 7.3 mg/dL (8.4-10.2); CREATININE, serum 1.23 (0.66-1.25)
[2018-09-23 08:08] VITALS: BP 165/56; PULSE 72; TEMP 98.4
--- NOTE | 2018-09-23 09:45 | NUR ---
Assessment completed, alert/oriented, vital signs stable, denies pain or discomfort, WBC wnl this morning and has been Afebrile through the night, tube feed is still running and is almost finished/ will flush and change dressing to J-tube site, heart RRR, lungs CTA, present in the room, patient is eating some cereal, denies other needs at this time
--- NOTE | 2018-09-23 11:49 | NUR ---
The patient is to discharge back home with his today, 09/23, and will resume home health services for long term/PT/OT through [facility]. SW faxed discharge orders to [facility]. No additional needs at this time.
--- NOTE | 2018-09-23 14:00 | NUR ---
Discussed discharge instructions with the patient and , instructed to continue previous home meds/ NO new meds ordered, follow up with PCP and Oncology as scheduled, PORT flushed with heparin and De-accessed, dressing changed to J-tube site, patient is leaving with , FREIGHT TRAFFIC CONSULTANT will escort down via wheelchair
== END 2018-09-23 14:02 | disposition home or self-care (01) ==
LOC: COL.ER 09:28 → MEDICAL 12:02
PROVIDERS: Family Medicine; Physician Assistant; ADMIT Hospitalist
DX: R50.9 Fever, unspecified (principal); R60.0 Localized edema; C25.9 Malignant neoplasm of pancreas, unspecified; I12.9 Hypertensive chronic kidney disease with stage 1 through stage 4 chronic kidney disease, or unspecified chronic kidney disease; N18.9 Chronic kidney disease, unspecified; D63.1 Anemia in chronic kidney disease; E78.5 Hyperlipidemia, unspecified; Z85.46 Personal history of malignant neoplasm of prostate; Z90.79 Acquired absence of other genital organ(s); Z96.651 Presence of right artificial knee joint; E87.1 Hypo-osmolality and hyponatremia; C78.7 Secondary malignant neoplasm of liver and intrahepatic bile duct; Z85.3 Personal history of malignant neoplasm of breast; Z82.5 Family history of asthma and other chronic lower respiratory diseases; Z88.6 Allergy status to analgesic agent
CPT/HCPCS: 99233-AI; A4216; A9284; G0378; J0692; J1644; J3370; J7030; J7050